=== PATIENT | male | born 1975 ===

== ENCOUNTER 2024-10-15 10:11 | Outpatient (AMB) | payer OTHER, SELFPAY ==
--- NOTE | 2024-10-15 10:16 | A.OFFVIS_ITS ---
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 Rwandan-speaking. He is a patient of . He is seen for the following urologic conditions - erectile dysfunction Erectile Dysfunction He presents today for - initial evaluation of erectile dysfunction, for continued evaluation and management of erectile dysfunction Current treatment includes - trialed on demand Viagra with heart rate issues At the time of initial evaluation he experiences - able to obtain erections sufficient for penetration - undergoes rapid detumescence with lack of feeling - Scores IIEF 7 Symptoms have been present for/since - progressive Nocturnal erections do occur Prior therapies include - on demand sildenafil Treatment side effects include - increased heart rate Associated Medical Conditions include HIV Physical Performance Status is able to walk 200 yd and can ascend 2 flights of stairs easily without breathlessness Atherosclerosis Cardiovascular Disease Risk - minimal Therapeutic plan includes - trial of daily medication. If nonresponsive will need baseline testosterone testing. Review of Systems Const Denies chills and Denies fever(s) Card Reports no additional complaints and Denies syncope Resp Denies cough GI Denies abdominal pain and Denies heartburn Reports as per HPI and Denies change in libido Neuro Denies syncope Psych Denies change in libido Endo Denies change in libido Physical Exam Const General: cooperative, healthy appearing, comfortable and no acute distress Orientation/consciousness: patient oriented x3 HEENT Face and sinus: Yes normal facial exam Mouth: moist mucous membranes Neck Neck: Yes normal visual inspection, Yes full ROM and Yes trachea midline Chest Chest palpation & inspection: normal inspection of the chest Resp Effort & Inspection: normal respiratory effort, able to speak in complete sentences and no respiratory distress GI Inspection: Yes normal to inspection Back/Spine/Pelvis Cervical Spine: normal cervical lordosis Thoracic/Lumbar Spine: thoracic and lumbar spine normal to inspection Skin General skin exam: no rashes or lesions noted Neuro General: patient oriented x3, gait normal, tone normal and moves all extremities Extrem General: Yes normal to inspection and Yes capillary refill normal Assessment & Plan Assessment & Plan (1) Erectile dysfunction: Code(s): N52.9 - Male erectile dysfunction, unspecified Category: Medical Plan Trial daily Cialis Medications: New tadalafil [id number] [facility] [id number] Member [id number] 5 mg PO DAILY 90 days 90 tabs 0RF sexual activity N52.9 - Male erectile dysfunction, unspecified Patient Instructions: This note is constructed using voice recognition software. While every effort has been made to ensure accuracy ski maker wood errors may have been included. Imaging studies, laboratory and physical exam results were discussed and reviewed in detail. No major barriers to patient understanding were identified. An opportunity to ask questions regarding the treatment plan was provided. All questions were answered. The patient expressed understanding and agreement with the above treatment plan. The patient is aware they should contact our office by phone for worsening of their current condition or the appearance of new urologic symptoms. Compliance is encouraged with any medications and followup testing that is ordered. It is a privilege to participate in the urologic care of your patient. If you have any questions or concerns regarding treatment for the above conditions, or other urologic issues, please do not hesitate to contact me. The office telephone contact is [phone]. Sincerely, Dr Leoncio Levine MD, [facility] - Urology Compassionate Specialist Care for the Genitourinary System Coding Level of Care Code New Pt Level 4 (54555) Diagnoses Erectile dysfunction N52.9
== END 2024-10-15 10:54 | disposition home or self-care (01) ==
LOC: HO.HUSH 10:12
PROVIDERS: PCP Physician Assistant Medical; Visit Provider Urology
DX: N52.9 Male erectile dysfunction, unspecified (principal)
CPT/HCPCS: 99204

== ENCOUNTER → 2024-10-15 10:11 | Outpatient (BNVA) | payer OTHER, SELFPAY | PROVIDERS: PCP Physician Assistant Medical; Visit Provider Urology | DX: N52.9 Male erectile dysfunction, unspecified (principal); R00.0 Tachycardia, unspecified | CPT/HCPCS: 99202 ==

== ENCOUNTER 2025-01-14 10:58 | Outpatient (AMB) | payer OTHER, SELFPAY ==
--- NOTE | 2025-01-14 10:59 | MHC.OFFVIS ---
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 Maltese-speaking. He is a patient of . He is seen for the following urologic conditions - erectile dysfunction Telemedicine Evaluation 15 min Consultation [employer] Martha Video Three-month follow-up daily tadalafil Good effect with daily tadalafil and on demand Follow-up six-month Erectile Dysfunction He presents today for - for continued evaluation and management of erectile dysfunction Current treatment includes - trialed on demand Viagra with heart rate issues At the time of initial evaluation he experiences - able to obtain erections sufficient for penetration - undergoes rapid detumescence with lack of feeling - Scores IIEF 7 Symptoms have been present for/since - progressive Nocturnal erections do occur Prior therapies include - on demand sildenafil Treatment side effects include - increased heart rate Associated Medical Conditions include HIV Physical Performance Status is able to walk 200 yd and can ascend 2 flights of stairs easily without breathlessness Atherosclerosis Cardiovascular Disease Risk - minimal Therapeutic plan includes - trial of daily medication. If nonresponsive will need baseline testosterone testing. Review of Systems Const All systems reviewed & are unremarkable except as noted in HPI and below Reports no additional complaints Resp Reports no additional complaints GI Reports no additional complaints Reports as per HPI Musc Reports no additional complaints Physical Exam Telemedicine evaluation Appropriate responses Regular breathing rate and rhythm HEENT Head: Yes normal to inspection Ears: hearing grossly normal bilaterally Eyes General: appearance normal, both eyes and all related structures Neck Neck: Yes normal visual inspection Chest Chest palpation & inspection: normal inspection of the chest Resp Effort & Inspection: normal respiratory effort and able to speak in complete sentences Telehealth Telehealth Telehealth Platform: [employer] Location of provider rendering services: practice address Location of patient: address on file Patient Identification confirmed using: Name, : Yes Telehealth method: video Patient verbally consented to treatment: Yes Patient verbally consented to billing insurance company: Yes Patient informed of any privacy concerns related to visit: Yes Assessment & Plan Assessment & Plan (1) Erectile dysfunction: Code(s): N52.9 - Male erectile dysfunction, unspecified Category: Medical Plan Continue daily 5 mg with 10 mg on demand Medications: New tadalafil [id number] [facility] GroupGDRX Member [id number] 10 mg PO ONCE PRN 30 tabs 1RF sexual activity 30 days N52.9 - Male erectile dysfunction, unspecified Refilled tadalafil [id number] [facility] [id number] Member [id number] 5 mg PO DAILY 90 tabs 1RF sexual activity 90 days N52.9 - Male erectile dysfunction, unspecified Patient Instructions: This note is constructed using voice recognition software. While every effort has been made to ensure accuracy single end sewer errors may have been included. Imaging studies, laboratory and physical exam results were discussed and reviewed in detail. No major barriers to patient understanding were identified. An opportunity to ask questions regarding the treatment plan was provided. All questions were answered. The patient expressed understanding and agreement with the above treatment plan. The patient is aware they should contact our office by phone for worsening of their current condition or the appearance of new urologic symptoms. Compliance is encouraged with any medications and followup testing that is ordered. It is a privilege to participate in the urologic care of your patient. If you have any questions or concerns regarding treatment for the above conditions, or other urologic issues, please do not hesitate to contact me. The office telephone contact is [phone]. Sincerely, Dr Leoncio Levine MD, [facility] - Urology Compassionate Specialist Care for the Genitourinary System Coding Level of Care Code Tele Est Pt Level 3 (72267) Complex EM visit Add On G2211 Diagnoses Erectile dysfunction N52.9
--- OUTSIDE RECORDS SUMMARY | 2025-01-14 13:57 | XMS_ITS | Clinical Summary ---
Author Organization [facility] Address [address] [place] [address] Care Team Providers Care Delinquent Tax Collection Assistant Name Role Phone Unavailable Primary Care Provider Unavailabl e Source Comments PLEASE NOTE, if this patient is a minor, it may be UNLAWFUL to discuss sensitive information that is contained in these records (such as FAMILY PLANNING, MENTAL HEALTH or SUBSTANCE ABUSE) with the minor patient's parent or other person without the patient's specific authorization.[facility] Allergies No known active allergies Medications meclizine (ANTIVERT) 25 mg tabletIndicatio ns:Vertigo Take 1 Tab by mouth 2 (two) times daily as needed for nausea or dizziness 30 Tab 7 Active Lactobac comb 6-ILM-axkrtysmt e (PROBIOTIC AND ACIDOPHILUS) 300-250 million cell-mg capsuleIndicati ons:Gastritis without bleeding, unspecified chronicity, unspecified gastritis type Take 1 Cap by mouth once daily 30 Cap 8 Active loratadine (CLARITIN) 10 mg tablet 8 Active fluticasone (FLONASE) 50 mcg/actuation nasal spray fluticasone 50 mcg/actuation nasal spray,suspension SPRAY 1-2 SPRAYS IN EACH NOSTRIL DAILY Active diclofenac sodium (VOLTAREN) [address] tablet diclofenac sodium 50 mg tablet,delayed release Active DULoxetine (CYMBALTA) [address] capsule duloxetine 30 mg capsule,delayed release Active ergocalciferol, vitamin D2, (VITAMIN D2) 50,000 unit capsule Vitamin D2 50,000 unit capsule Active buPROPion HCl (WELLBUTRIN SR) 100 mg 12 hr tabletIndicatio ns:Depression, unspecified depression type Take 1 Tab by mouth once daily 30 Tab 2 8 Active ketoconazole (NIZORAL) 2 % shampoo Apply topically once daily as needed for itching 120 mL 9 Active clotrimazole-be tamethasone (LOTRISONE) 1-0.05 % lotionIndicatio ns:Fungal rash of trunk,Tinea cruris Apply topically 2 (two) times daily 30 mL 1 9 Active sulfamethoxazol e-trimethoprim (BACTRIM DS) 800-160 mg per tabletIndicatio ns:Pneumocystis jirovecii pneumonia prevention Take 1 Tab by mouth once daily Indications: Pneumocystis jiroveci pneumonia prevention 60 Tab 0 Active albuterol sulfate (PROAIR HFA) 90 mcg/actuation inhaler Inhale 2 Puffs into the lungs every 4 (four) hours as needed for shortness of breath or wheezing 18 g 1 0 Active albuterol sulfate 90 mcg/actuation inhaler INHALE 2 PUFFS INTO THE LUNGS EVERY 4 (FOUR) HOURS NEEDED FOR SHORTNESS OF BREATH OR WHEEZING 18 Inhaler 1 1 Active FLUoxetine (PROZAC) 20 mg capsuleIndicati ons:Depression, unspecified depression type Take 1 Capsule by mouth once daily 30 Capsule 3 1 Active hydrocortisone 1 % creamIndication s:Eczema, unspecified type Apply topically 2 (two) times daily To temporal eczema for up to 7 days per episode 56 g 2 1 Active LORazepam (ATIVAN) 0.5 mg tabletIndicatio ns:Anxiety Take 1 Tab by mouth 2 (two) times daily as needed for anxiety for up to 30 days 30 Tablet 1 Active ipratropium-alb uteroL (DUONEB) 0.5 mg-3 mg(2.5 mg base)/3 mL nebulizer solutionIndicat ions:Wheezing,S hortness of breath,ANGELA (obstructive sleep apnea) Take 3 mL by nebulization 4 (four) times daily as needed for wheezing 90 mL 1 1 Active BIKTARVY 50-200-25 mg tabIndications: HIV antibody positive ([facility]) TAKE 1 TABLET BY MOUTH DAILY 90 Tablet 4 1 Active cholecalciferol , vitamin D3, (VITAMIN D3) 1,250 mcg (50,000 unit) capsule 1 Active fluticasone propionate (FLONASE) 50 mcg/actuation nasal sprayIndication s:Vasomotor rhinitis Place 2 Sprays in both nostrils once daily 16 g 3 2 Active Active Problems Problem Noted Date Diagnosed Date Abnormal findings in other body fluids and subst ances 06/05/2017 ANGELA (obstructive sleep apnea) 04/17/2017 Dyspnea 04/17/2017 Wheezing 04/17/2017 Chest pain 04/17/2017 Recurrent major depression ([facility] 017 Generalized abdominal pain 04/17/2017 Weight loss 04/17/2017 Constipation 04/17/2017 Pulmonary nodule 04/17/2017 Hyperlipemia 04/17/2017 Anxiety disorder 04/17/2017 Resolved Problems Problem Noted Date Diagnosed Date Resolved Date Abnormal laboratory test result 05/30/2017 06/07/2017 Rhinitis 04/17/2017 12/24/2020 Social History Tobacco Use Types Packs/Day Years Used Date Smoking Tobacco: Former Smokeless Tobacco: Never Tobacco Cessation:Counseling Given: Yes Comments:10 years ago Alcohol Use Standard Drinks/Week Comments Yes 1 (1 standard drink = 0.6 oz pur e alcohol) Socially Social Connections Answer Date Recorded Connectedness 0 01/23/2024 Financial Resource Strain Answer Date R ecorded Financial Resource Strain 0 2018 Stress Answer Date Recorded Stress 0 12/28/2018 Physical Activity Answer Date Recorded Physical Activity 0 12/28/2018 Food Insecurity Answer Date Recorded Food 0 01/31/2024 Transportation Needs Answer Date Record ed Transportation 0 12/28/2018 Housing Stability Answer Date Recorded Housing 0 12/28/2018 Safety and Environment Answer Date Nick rded Safety 0 12/28/2018 Utilities Answer Date Recorded Utilities 0 12/28/2018 Employment Answer Date Recorded Stress 0 01/23/2024 Sex and Gender Information Value Date Recorded Sex Assigned at Male 05/01/2017 12:28 PM PST Legal Sex Male 11:36 AM PDT Gender Identity Male 05/01/2017 12:28 PM PST Sexual Orientation Straight 05/01/2017 12 :28 PM PST Last Filed Vital Signs Vital Sign Reading Time Taken Comments Blood Pressure 110/80 07/17/2019 1:43 PM EDT Pulse 72 07/17/2019 1:43 PM EDT Temperature 37.1 C (98.8 F) 07/17/2019 1:43 PM EDT Respiratory Rate 18 07/17/2019 1:43 PM EDT Oxygen Saturation - - Inhaled Oxygen Concentration - - Weight 82.1 kg (181 lb) 07/17/2019 1:43 PM EDT Height 172.7 cm (5' 8 ) 07/17/2019 1:43 PM EDT Body Mass Index 27.52 07/17/2019 1:43 PM EDT Plan of Treatment Not on file Insurance [facility]
== END 2025-01-14 12:34 | disposition home or self-care (01) ==
LOC: HO.HUSH 10:58
PROVIDERS: PCP Physician Assistant Medical; Visit Provider Urology
DX: N52.9 Male erectile dysfunction, unspecified (principal)
CPT/HCPCS: 99213; G2211